=== PATIENT | female | born 1985 | race American Indian/Alaskan Native ===

== ENCOUNTER 2017-04-11 23:22 | Emergency (ER) | payer OTHER ==
--- NOTE | 2017-04-12 02:30 | Emergency Department Report ---
HPI - General Chief Complaint: Upper Respiratory Infection Time Seen by Provider: 04/12/17 02:30 - HPI HPI: Patient here complaining of sinus infection with nasal drainage that has been going on for 2 weeks. She reports occasional cough. Denies any sore throat or difficulty breathing. Denies any shortness of breath or chest pain. She says she's tried multiple [id number] medication but it's not working. Negative nausea or vomiting. Denies any fever or chills. She said sinus problems has been getting worse over the last 4 days despite using multiple over -the-counter medication. History of sinus problems and she also has surgical history of tubal ligation. ED Past Medical Hx - Past Medical History Previous Medical History?: Yes Additional medical history: Sinus problems - Surgical History Past Surgical History?: Yes Additional Surgical History: tubal ligation - Family History Family history: no significant - Social History Smoking Status: Never Smoker Substance Use Type: None - Medications Home Medications: Home Medications Medication Instructions Recorded Confirmed Last Taken Type Amoxicillin/K Clav Tab [Augmentin 1 tab PO Q12HR #20 tab 04/12/17 Unknown Rx 875 mg] Cetirizine HCl [ZyrTEC] 10 mg PO QDAY #14 capsule 04/12/17 Unknown Rx Fluticasone [Flonase] 1 spray NS QDAY #1 bottle 04/12/17 Unknown Rx ED Review of Systems ROS: Stated complaint: SINUS INFECTION Other details as noted in HPI Comment: All other systems reviewed and negative Constitutional: denies: chills, fever Eyes: denies: eye pain, eye discharge, vision change ENT: congestion (congestion and drainage with sinus pain). denies: ear pain, throat pain, dental pain Respiratory: cough (occasional dry cough). denies: orthopnea, shortness of breath, SOB with exertion, SOB at rest, stridor, wheezing Cardiovascular: denies: chest pain, palpitations, edema, syncope Gastrointestinal: denies: abdominal pain, nausea, vomiting Musculoskeletal: denies: back pain, arthralgia, myalgia Skin: denies: rash Neurological: denies: headache, weakness, numbness, paresthesias, confusion, abnormal gait, vertigo Physical Exam - Physical Exam Vital Signs: Vital Signs 04/12/17 01:05 Temperature 98.6 F Pulse Rate 78 Respiratory 16 Rate Blood Pressure 142/86 O2 Sat by Pulse 100 Oximetry General: 31-year-old female well-nourished well-developed in no acute distress. Physical Exam: Head: Normocephalic, atraumatic, no abrasion, no bruising and no contusion. Eyes: Biateral pupils equal and reactive to light, bilateral EOM intact.. Bilateral conjunctival and sclera without injection, normal accommodation. Nose: Mucosa erythema, congested with clear drainage. external nose normal exam. Positive tenderness to the bilateral maxillary and frontal sinuses. Ears: Bilateral EAC without any redness drainage or swelling, lateral TM congested without erythema. Bilateral tragus is nontender to palpate No auricular abnormality Mouth: No pharyngeal exudate or erythema. Uvula is midline and oral airways patent. Moist and tongue is normal Neck: Supple, no adenopathy, full range of motion and no C-spine tenderness. No swelling or tracheal deviation Cardiovascular: S1, S2. Regular rate and rhythm. No murmur. Capillary refill is less then 3 seconds. Lungs: Clear to auscultate bilaterally. No rhonchi, wheezes or rales. No chest wall tenderness MSK: Strength 5/5 in all extremities. No joint deformity or crepitus. Normal inspection. Full range of motion to all extremities Extremities: No clubbing, cyanosis or edema. +2 pulses. No neurovascular compromise Skin: Clean, dry and intact. No rash or lesions. Psych: Normal mood and behavior. ED Course Vital Signs 04/12/17 01:05 Temperature 98.6 F Pulse Rate 78 Respiratory 16 Rate Blood Pressure 142/86 O2 Sat by Pulse 100 Oximetry - Reevaluation(s) Reevaluation #1: 04/12/17 03:14 Stable throughout ED stay ED Medical Decision Making - Medical Decision Making ED Course: Pt here complain of sinus infection and nasal drainage that she has been trying to treat with [id number] medication without any success. Physical findings for sinus infection and cough. Because diagnosis and treatment plan the patient and she voiced understanding. Patient does not have a primary care physician so I'll refer her to [facility] for follow-up sinus infection. Assessment/plan 1. Acute sinusitis 2. Acute cough in adult patient Prescription for Augmentin, Zyrtec, Flonase. She was instructed to flush her nostrils out with saline nasal flushes twice daily and to follow-up with [facility] Critical care attestation.: If time is entered above; I have spent that time in minutes in the direct care of this critically ill patient, excluding procedure time. ED Disposition Clinical Impression: Cough in adult patient Acute sinusitis Qualifiers: Sinusitis location: unspecified location Recurrence: recurrent Qualified Code(s ): J01.91 - Acute recurrent sinusitis, unspecified Disposition: TO HOME OR SELFCARE Is pt being admited?: No Does the pt Need Aspirin: No Condition: Stable Instructions: Sinusitis (ED), Acute Cough (ED) Additional Instructions: Increase fluid intake Flush nostrils out with saline nasal spray twice daily Take Antibiotic and other medication as prescribed Prescriptions: Amoxicillin/K Clav Tab [Augmentin 875 mg] 1 tab PO Q12HR #20 tab Cetirizine HCl [ZyrTEC] 10 mg PO QDAY #14 capsule Fluticasone [Flonase] 1 spray NS QDAY #1 bottle Referrals: [facility] [Outside] - 3-5 Days Forms: Work/School Release Form(ED)
[2017-04-12 03:34] VITALS: BP 149/95
== END 2017-04-12 03:34 | disposition home or self-care (01) ==
LOC: ED 23:22
DX: J01.91 Acute recurrent sinusitis, unspecified (principal)
CPT/HCPCS: 99282